=== PATIENT | female | born 1950 | race Caucasian/White ===

== ENCOUNTER 2020-02-26 09:30 | Outpatient (CLI) | payer MEDICARE, MEDICAID, SELFPAY ==
--- NOTE | 2020-02-26 09:45 | MM_ITS ---
WS: [id number] BILATERAL DIGITAL SCREENING MAMMOGRAPHY WITH CAD CLINICAL INFORMATION: SCREENING HISTORY: Screening mammogram. Pain under both breasts. COMPARISON: February 21, 2019 TECHNIQUE: Bilateral CC and MLO views. FINDINGS: The breasts are composed of heterogeneous fibroglandular density tissue, which can limit the detectio n of small underlying mass lesions. No suspicious mass, asymmetry, calcifications, or architectural d istortion. No evidence of malignancy. Stable intramammary lymph nodes bilaterally. A few stable punct ate calcifications. MM/[place] [id number] IMPRESSION: BI-RADS: 2-Benign FOLLOW UP: 1 Year Follow-up Recommend return to annual screening mammography.
== END 2020-02-26 09:31 | disposition home or self-care (01) ==
LOC: RADSHAW 09:39
PROVIDERS: PCP Nurse Practitioner Family; Visit Provider Nurse Practitioner Family
DX: Z12.31 Encounter for screening mammogram for malignant neoplasm of breast (principal)
CPT/HCPCS: 77067

== ENCOUNTER 2020-05-03 12:48 | Outpatient (CLI) | payer MEDICARE, MEDICAID, SELFPAY ==
--- NOTE | 2020-05-03 12:59 | CT_ITS ---
WS: [id number] CT of the lumbar spine, additional two-dimensional coronal and sagittal imaging was obtained. 05/03/20 Clinical Data: CHRONIC LUMBAR RADICULOPATHY Comparison: None. DLP: 1842.[address] scans at [facility] use at least one of these dose optimization techniques: automat ed exposure control; mA and/or kV adjustment per patient size (includes targeted exams where dose is matched to clinical indication); or iterative reconstruction. Findings: No compression fractures are seen. The disc heights are normal. There is minimal anterior o steoarthritic spurring at all the lumbar vertebral bodies. No subluxation is seen. T12-L1: No canal stenosis, disc bulge or foraminal narrowing is seen. L1-L2: No canal stenosis, disc bulge or foraminal narrowing is seen. L2-L3: There is a minimal posterior disc bulge causing mild canal stenosis but there is no foraminal stenosis. L3-L4: There is a minimal central disc bulge causing canal stenosis but no foraminal stenosis. L4-L5: There is a minimal central disc bulge causing canal stenosis and mild foraminal stenosis. L5-S1: There is a minimal central disc bulge causing mild canal stenosis but no foraminal stenosis. CT/CT lumbar spine wo con* [id number] Impression: Multilevel posterior disc bulging causing canal stenosis.
== END 2020-05-03 12:49 | disposition home or self-care (01) ==
LOC: RADSHAW 12:52
PROVIDERS: PCP Nurse Practitioner Family; Visit Provider Nurse Practitioner Family
DX: M54.16 Radiculopathy, lumbar region (principal); M51.26 Other intervertebral disc displacement, lumbar region; M48.061 Spinal stenosis, lumbar region without neurogenic claudication
CPT/HCPCS: 72131

== ENCOUNTER 2020-05-08 08:45 | Day surgery (SDC) | payer MEDICARE, MEDICAID, SELFPAY ==
[2020-05-06 13:21] VITALS: BMI 38.8
[2020-05-08 09:20] VITALS: BP 164/113; PULSE 86; RESP 20; TEMP 36.5; O2SAT 95
[2020-05-08] MEDS: sodium chloride 0.9% 1,000 ML 30 ML IV (09:36)
--- NOTE | 2020-05-08 09:38 | ANES.PREANE2 ---
Pre-Anesthetic Assessment Pre-Anesthetic Assessment: Height/Weight: Height 1.52 m Weight 90.265 kg Temp Pulse Resp BP Pulse Ox 97.7 F 86 20 H 164/113 95 05/08/20 09:20 05/08/20 09:20 05/08/20 09:20 05/08/20 09:20 05/08/20 09:20 Preop Diagnosis: Diarrhea Proposed Procedure: Operation Date: 05/08/20 09:45 Proposed Procedures p Colonoscopy 03544 R19.7(Not Applicable) - Corey Sigala MD Was Beta Rafaela taken within 24 hours: Yes Last intake: Intake Last Liquid Date 05/07/20 Last Liquid Time 19:00 Last Solid Date 05/06/20 Last Solid Time 17:00 Social: Social History: No alcohol and No tobacco Exam: Pre-Anes Outpt Exam: alert, oriented x 3, clear to auscultation bilaterally and regular rate & rhythm Airway: Submandibular: WNL Cervical ROM: WNL MP: 3 Dentition: False Pulmonary: Pulmonary: Sleep apnea CV/HEM: CV/HEM: HTN : : None reported Hepatic: Hepatic: None reported GI: GI: GERD Metabolic: Metabolic: None reported Musc/skel: Musc/skel: Lower Back Pain Neuropsych: Neuropsych: None reported Anesthetic Plan: ASA status: 3 Anesthesia: MAC Risk of > 500 ml blood loss (7ml/kg in children): No Meds/Allergies Current Medications: Current Medications Generic Name Dose Route Start Last Admin Trade Name Freq PRN Reason Stop Dose Admin Sodium Chloride 1,000 mls @ 30 ml s/hr 05/08/20 09:15 05/08/20 09:36 Sodium Chloride 0.9% IV 05/09/20 09:14 30 mls/hr .Q24H CARLOS Administration PFSH Anesthesia PFSH: Medical History Anxiety Diarrhea Hypertension Kidney disease Surgical History History of bilateral tubal ligation History of hemorrhoidectomy History of laparoscopic cholecystectomy Family History Denies family history of Anesthesia complication Bleeding disorder Social History Smoking and tobacco status: never smoked Second hand smoke exposure: No Alcohol intake: never Adopted: No Caregiver/support person: Yes Lives independently: No Household members: family Housing: House Marital status: Single Current occupational status: disabled Pets and animals: No History of recent travel: No Sexually active: No Current gender identity: Female Penelope/Evangelical: Adventist Special penelope needs: No Data Anesthesia Cardiac Studies: No Data to Display
--- NOTE | 2020-05-08 10:21 | W.PM.OPSUD ---
Surgery/Procedure H&P Update DATE OF PROCEDURE: May 08, 2020 DATE H&P PERFORMED: 04/10/20 H&P UPDATE INFORMATION: I have reviewed H&P completed within last 30 days, I have examined patient prior to procedure and No changes to prior documentation PREOP DIAGNOSIS: Diarrhea PRIMARY INDICATION FOR PROCEDURE: The same PLANNED PROCEDURE: Operation Date: 05/08/20 09:45 Proposed Procedures p Colonoscopy 02053 R19.7(Not Applicable) - Corey Sigala MD
[2020-05-08 10:40] VITALS: BP 134/81; PULSE 79; RESP 16; TEMP 36.9; O2SAT 94
--- NOTE | 2020-05-08 10:45 | ANE.PACU2 ---
Inpatient post-anesthesia follow up: Airway intact: Yes Vital signs: Temperature 98.4 F Pulse Rate 79 Respiratory Rate 16 Blood Pressure 134/81 Pulse Oximetry 94 Oxygen Delivery Me thod Nasal Cannula Oxygen Flow Rate 3 Fraction of Inspir ed Oxygen Hydration adequate: Yes Nausea and vomiting: No Pain level: 1
[2020-05-08 10:55] VITALS: BP 132/87; PULSE 83; RESP 16; O2SAT 95
== END 2020-05-08 11:12 | disposition home or self-care (01) ==
PROVIDERS: PCP Nurse Practitioner Family; Visit Provider Surgery
PROC: 0DJD8ZZ Inspection of Lower Intestinal Tract, Via Natural or Artificial Opening Endoscopic (ICD-10-PCS; CPT 45378; principal; 2020-05-08 09:45)
DX: D12.4 Benign neoplasm of descending colon (principal); D12.8 Benign neoplasm of rectum; K57.30 Diverticulosis of large intestine without perforation or abscess without bleeding; K52.9 Noninfective gastroenteritis and colitis, unspecified; I12.9 Hypertensive chronic kidney disease with stage 1 through stage 4 chronic kidney disease, or unspecified chronic kidney disease; N18.9 Chronic kidney disease, unspecified; G47.30 Sleep apnea, unspecified
CPT/HCPCS: 12345; 45385; 82274; 83630; 87493; 87506; 88305; J2704; J7030

== ENCOUNTER 2021-03-03 09:20 | Outpatient (CLI) | payer MEDICARE, MEDICAID, SELFPAY ==
--- NOTE | 2021-03-03 09:29 | MM_ITS ---
WS: [id number] BILATERAL SCREENING DIGITAL MAMMOGRAM WITH CAD HISTORY: SCREENING COMPARISON: 02/26/2020, 12/30/2015, 01/04/2017 and 02/21/2019 Bilateral CC and MLO views submitted. Computer aided detection analyzed. Breast composition: The breasts are heterogeneously dense, which may obscure small masses. No suspici ous masses, microcalcifications or architectural distortion. There are several asymmetries within eac h breast. The most concerning is on the RIGHT MLO projection above the nipple line and posterior. Angeline y similar dating back over multiple prior examinations to 2016 and therefore stable. There are additi onal benign scattered calcifications. MM/[place] [id number] IMPRESSION: BI-RADS: 2-Benign FOLLOW UP: 1 Year Follow-up
== END 2021-03-03 09:21 | disposition home or self-care (01) ==
LOC: RADSHAW 09:24
PROVIDERS: PCP Nurse Practitioner Family; Visit Provider Nurse Practitioner Family
DX: Z12.31 Encounter for screening mammogram for malignant neoplasm of breast (principal)
CPT/HCPCS: 77067

== ENCOUNTER 2021-06-27 19:30 | Emergency (ER) | payer MEDICARE, MEDICAID, SELFPAY ==
[2021-06-27 19:39] VITALS: BP 160/108; PULSE 96; RESP 18; TEMP 36.8; O2SAT 94; BMI 35.2
--- NOTE | 2021-06-27 19:51 | CTR_ITS ---
PROCEDURE INFORMATION: Exam: CT Thoracic Spine Without Contrast Exam date and time: 06/27/2021 7:51 PM Age: 70 years old Clinical indication: Injury or trauma; Fall; Blunt trauma (contusions or hematomas); Prior surgery; Surgery type: Gb; Patient HX: Patient fell on floor at home onto left side. C/O head/neck pain. Bruising to left orbit. C/O back pain. Unable to put arms above head. C collar in place. TECHNIQUE: Imaging protocol: Computed tomography images of the thoracic spine without contrast. Radiation optimization: All CT scans at this facility use at least one of these dose optimization techniques: automated exposure control; mA and/or kV adjustment per patient size (includes targeted exams where dose is matched to clinical indication); or iterative reconstruction. COMPARISON: CT cervical spin wo con* [id number] 06/27/2021 8:42 PM RADIATION DOSE METRICS: Total DLP (mGy-cm): 1791.66 FINDINGS: Vertebrae: No acute fracture. Normal alignment. Mild degenerative changes are noted. Discs/Spinal canal/Neural foramina: No significant disc protrusion. No severe spinal canal stenosis. No significant neural foraminal narrowing. Soft tissues: Unremarkable. Lungs: There is mild ground-glass opacity in the lung bases compatible with mild atelectasis, edema or pneumonitis. CT/CT thoracic spin wo con* [id number] IMPRESSION: 1. There is mild ground-glass opacity in the lung bases compatible with mild atelectasis, edema or pneumonitis. 2. No acute bony abnormality. Mild diffuse degenerative changes are noted. Radiation Dose CTDIVOL = (mGy): DLP = 1791.66 (mGy-cm)
--- NOTE | 2021-06-27 19:51 | CTR_ITS ---
PROCEDURE INFORMATION: Exam: CT Lumbar Spine Without Contrast Exam date and time: 06/27/2021 7:51 PM Age: 70 years old Clinical indication: Injury or trauma; Fall; Blunt trauma (contusions or hematomas) TECHNIQUE: Imaging protocol: Computed tomography images of the lumbar spine without contrast. Radiation optimization: All CT scans at this facility use at least one of these dose optimization techniques: automated exposure control; mA and/or kV adjustment per patient size (includes targeted exams where dose is matched to clinical indication); or iterative reconstruction. COMPARISON: CT lumbar spine wo con* [id number] 05/03/2020 1:03 PM RADIATION DOSE METRICS: Total DLP (mGy-cm): 1678.43 FINDINGS: Vertebrae: No acute fracture. Normal alignment. Discs/Spinal canal/Neural foramina: There is an unchanged disc bulge at L5-S1 with mild narrowing of the central canal and foramina but no critical stenosis. Soft tissues: Unremarkable. CT/CT lumbar spine wo con* [id number] IMPRESSION: No acute findings. Radiation Dose CTDIVOL = (mGy): DLP = 1678.43 (mGy-cm)
--- NOTE | 2021-06-27 19:51 | XRR_ITS ---
PROCEDURE INFORMATION: Exam: XR Left Femur Exam date and time: 06/27/2021 7:51 PM Age: 70 years old Clinical indication: Injury or trauma; Fall; Blunt trauma; Thigh or upper leg; Bilateral TECHNIQUE: Imaging protocol: XR Left femur. Views: 2 views. COMPARISON: CT abdomen pelvis w con* [id number] 02/10/2017 2:13 PM FINDINGS: Bones/joints: Unremarkable. No acute fracture. There is osteopenia. Soft tissues: Mild edema anterior to the proximal tibia. XR/XR femur LT min 2V* [id number] IMPRESSION: No acute findings. Radiation Dose CTDIVOL = (mGy): DLP = (mGy-cm)
--- NOTE | 2021-06-27 19:51 | CTR_ITS ---
PROCEDURE INFORMATION: Exam: CT Head Without Contrast Exam date and time: 06/27/2021 7:51 PM Age: 70 years old Clinical indication: Injury or trauma; Fall; Blunt trauma (contusions or hematomas); Patient HX: Patient fell on floor at home onto left side. C/O head/neck pain. Bruising to left orbit. C/O back pain. Unable to put arms above head. C collar in place. TECHNIQUE: Imaging protocol: Computed tomography of the head without contrast. Radiation optimization: All CT scans at this facility use at least one of these dose optimization techniques: automated exposure control; mA and/or kV adjustment per patient size (includes targeted exams where dose is matched to clinical indication); or iterative reconstruction. COMPARISON: CT head wo con* [id number] 06/26/2019 2:03 PM RADIATION DOSE METRICS: Total DLP (mGy-cm): 761.03 FINDINGS: Brain: There is mild cerebral atrophy. No hemorrhage. Unremarkable white matter. No mass effect. Cerebral ventricles: No ventriculomegaly. Paranasal sinuses: Visualized sinuses are unremarkable. No fluid levels. Mastoid air cells: Visualized mastoid air cells are well aerated. Bones/joints: Unremarkable. No acute fracture. Soft tissues: Left frontal scalp soft tissue hematoma. Diffuse left periorbital soft tissue swelling. CT/CT head wo con* [id number] IMPRESSION: Negative for acute intracranial injury. Radiation Dose CTDIVOL = (mGy): DLP = 761.03 (mGy-cm)
--- NOTE | 2021-06-27 19:51 | XRR_ITS ---
PROCEDURE INFORMATION: Exam: XR Right Tibia and Fibula Exam date and time: 06/27/2021 7:51 PM Age: 70 years old Clinical indication: Injury or trauma; Fall; Blunt trauma; Lower leg; Bilateral TECHNIQUE: Imaging protocol: XR Right tibia and fibula. Views: 2 views. COMPARISON: No relevant prior studies available. FINDINGS: Bones/joints: There is osteopenia. Moderate degenerative changes in the knee joint and ankle are noted. No acute fracture or dislocation. Soft tissues: Normal. XR/XR tibia fibula RT 2V [id number] IMPRESSION: No acute bony abnormality. Radiation Dose CTDIVOL = (mGy): DLP = (mGy-cm)
--- NOTE | 2021-06-27 19:51 | XRR_ITS ---
PROCEDURE INFORMATION: Exam: XR Right Femur Exam date and time: 06/27/2021 7:51 PM Age: 70 years old Clinical indication: Injury or trauma; Fall; Blunt trauma; Thigh or upper leg; Bilateral TECHNIQUE: Imaging protocol: XR Right femur. Views: 2 views. COMPARISON: CT abdomen pelvis w con* [id number] 02/10/2017 2:13 PM FINDINGS: Bones/joints: Unremarkable. No acute fracture. Soft tissues: Unremarkable. XR/XR femur RT min 2V* [id number] IMPRESSION: No acute findings. Radiation Dose CTDIVOL = (mGy): DLP = (mGy-cm)
--- NOTE | 2021-06-27 19:51 | CTR_ITS ---
PROCEDURE INFORMATION: Exam: CT Maxillofacial Without Contrast Exam date and time: 06/27/2021 7:51 PM Age: 70 years old Clinical indication: Injury or trauma; Fall; Blunt trauma (contusions or hematomas); Orbit/periorbital; Patient HX: Patient fell on floor at home onto left side. C/O head/neck pain. Bruising to left orbit. C/O back pain. Unable to put arms above head. C collar in place. TECHNIQUE: Imaging protocol: Computed tomography images of the face without contrast. Radiation optimization: All CT scans at this facility use at least one of these dose optimization techniques: automated exposure control; mA and/or kV adjustment per patient size (includes targeted exams where dose is matched to clinical indication); or iterative reconstruction. COMPARISON: CT head wo con* [id number] 06/27/2021 8:38 PM RADIATION DOSE METRICS: Total DLP (mGy-cm): 703.9 FINDINGS: Orbital cavity: Orbits are normal. Globes are unremarkable. Bones/joints: No acute fracture. Paranasal sinuses: Normal. No air-fluid levels. Soft tissues: Left periorbital soft tissue swelling. Focal left frontal scalp soft tissue hematoma. CT/CT facial bones wo con* [id number] IMPRESSION: Negative for acute facial bone fracture. Radiation Dose CTDIVOL = (mGy): DLP = 703.9 (mGy-cm)
--- NOTE | 2021-06-27 19:51 | XRR_ITS ---
PROCEDURE INFORMATION: Exam: XR Left Tibia and Fibula Exam date and time: 06/27/2021 7:51 PM Age: 70 years old Clinical indication: Injury or trauma; Fall; Blunt trauma; Lower leg; Bilateral TECHNIQUE: Imaging protocol: XR Left tibia and fibula. Views: 2 views. COMPARISON: No relevant prior studies available. FINDINGS: Bones/joints: Normal. No acute fracture or dislocation. Soft tissues: There is mild subcutaneous edema. XR/XR tibia fibula LT 2V [id number] IMPRESSION: No acute findings. Radiation Dose CTDIVOL = (mGy): DLP = (mGy-cm)
[2021-06-27] MEDS: ondansetron 2 mg/ML SDV 2 mL 4 MG IVP (20:04)
[2021-06-27] MEDS: morphine 4 mg/mL SDV 1 mL IVP (20:04)
--- NOTE | 2021-06-27 20:15 | CTR_ITS ---
PROCEDURE INFORMATION: Exam: CT Cervical Spine Without Contrast Exam date and time: 06/27/2021 8:15 PM Age: 70 years old Clinical indication: Injury or trauma; Fall; Blunt trauma; Patient HX: Patient fell on floor at home onto left side. C/O head/neck pain. Bruising to left orbit. C/O back pain. Unable to put arms above head. C collar in place. TECHNIQUE: Imaging protocol: Computed tomography images of the cervical spine without contrast. Radiation optimization: All CT scans at this facility use at least one of these dose optimization techniques: automated exposure control; mA and/or kV adjustment per patient size (includes targeted exams where dose is matched to clinical indication); or iterative reconstruction. COMPARISON: CT facial bones wo con* [id number] 06/27/2021 8:40 PM RADIATION DOSE METRICS: Total DLP (mGy-cm): 540.52 FINDINGS: Vertebrae: No acute fracture. Normal alignment. The cervical spine demonstrates moderate degenerative changes at multiple levels. C2-C3: No significant disc protrusion. No severe spinal canal stenosis. No significant neural foraminal narrowing. C3-C4: No significant disc protrusion. No severe spinal canal stenosis. No significant neural foraminal narrowing. C4-C5: No significant disc protrusion. No severe spinal canal stenosis. No significant neural foraminal narrowing. C5-C6: No significant disc protrusion. No severe spinal canal stenosis. No significant neural foraminal narrowing. C6-C7: No significant disc protrusion. No severe spinal canal stenosis. No significant neural foraminal narrowing. C7-T1: No significant disc protrusion. No severe spinal canal stenosis. No significant neural foraminal narrowing. Soft tissues: Unremarkable. Lungs: Lung apices are normal. CT/CT cervical spin wo con* [id number] IMPRESSION: No acute findings. Radiation Dose CTDIVOL = (mGy): DLP = 540.52 (mGy-cm)
--- NOTE | 2021-06-27 20:15 | XRR_ITS ---
PROCEDURE INFORMATION: Exam: XR Left Elbow Exam date and time: 06/27/2021 8:15 PM Age: 70 years old Clinical indication: Injury or trauma; Fall; Blunt trauma (contusions or hematomas); Elbow; Left TECHNIQUE: Imaging protocol: XR Left elbow. Views: 3 or more views. COMPARISON: No relevant prior studies available. FINDINGS: Bones/joints: Normal. No acute fracture or dislocation. Mild degenerative changes are noted. There is an olecranon enthesophyte. A calcification adjacent to the mediolateral epicondyles is compatible probable chronic tendinopathy. Soft tissues: Normal. No elbow joint effusion. XR/XR elbow LT min 3V* [id number] IMPRESSION: No acute findings. Radiation Dose CTDIVOL = (mGy): DLP = (mGy-cm)
[2021-06-27] MEDS: fentaNYL 50 mcg/mL INJ 2mL IVP (20:19)
[2021-06-27 21:28] VITALS: BP 147/94; PULSE 95; RESP 16; O2SAT 93
--- NOTE | 2021-06-27 21:35 | PC.NURSE ---
c collar removed per physicans order. ct c spine negative for acute bony deformities.
--- NOTE | 2021-06-27 21:36 | ED_ITS ---
HPI - Fall General: Chief Complaint: Fall Stated Complaint: fall History of Present Illness: HPI Narrative: 70-year-old female who went to swat at a spider, and fell. She fell hitting the wall on the way to the ground in her home. She fell on her left side and complains of left-sided head and face pain, neck pain, left elbow pain, and bilateral leg pain. complaint: fall Fall from: standing Fall witnessed: no Place fall occurred: home Loss of consciousness: None Prolonged down time: no Symptoms prior to fall: none Context: tripped/slipped Location of injury: head and neck Location of injury - extremities: Left: elbow and Bilateral: thigh, knee and lower leg Associated symptoms-after fall: Reports difficulty walking, headache(s) and neck pain; Denies abdominal pain, chest pain, confusion, numbness or short of breath Review of Systems Const: Denies: fever(s) or chills Card: Denies: chest pain GI: Denies: abdominal pain Musc: Reports: neck pain Neuro: Reports: headache(s) and difficulty walking; Denies: confusion PFSH ED PFSH: Medical History (Updated 06/27/21 @ 21:50 by Yury Caldera DO) Anxiety Diarrhea Hypertension Kidney disease Surgical History History of bilateral tubal ligation History of hemorrhoidectomy History of laparoscopic cholecystectomy Family History Denies family history of Anesthesia complication Bleeding disorder Social History Smoking and tobacco status: never smoked Second hand smoke exposure: No Alcohol intake: never Adopted: No Caregiver/support person: Yes Lives independently: No Household members: family Housing: House Marital status: Single Current occupational status: disabled Pets and animals: No History of recent travel: No Sexually active: No Current gender identity: Female Penelope/Muslim: Denominational Special penelope needs: No Physical Exam Const: GENERAL APPEARANCE: cooperative, in distress (In pain), anxious and frail appearing NUTRITIONAL APPEARANCE: obese ORIENTATION/CONSCIOUSNESS: Yes awake, Yes oriented to person and Yes oriented to place HENMT: COMMON NORMALS: external ears normal and Normal external nose present FACE & SINUS: ecchymosis on the left periorbital and edema NOSE: Normal external nose present and Normal nares present EXTERNAL EAR: Yes external ears normal MOUTH: Normal oral and palatal mucosa present Eye: GENERAL EYE: appearance normal, both eyes and all related structures Neck/C-Spine: GENERAL: Yes trachea midline CERVICAL SPINE: Yes Cervical spine tenderness (Left side lower) Chest: COMMONS NORMALS: normal inspection of the chest CHEST: No tenderness Extremity: NARRATIVE EXTREMITY EXAM: Exam of the bilateral lower extremities reveals some diffuse edema. There is diffuse tenderness along the thigh and leg. No distinct hip tenderness. Pelvis is nontender, and stable on exam logroll test is negative for hip pain bilaterally Neuro: SENSORIUM/ORIENTATION: Yes oriented to person and Yes oriented to place Course Vital Signs: Vital signs: Vital Signs Temperature 98.2 F 06/27/21 21:59 Pulse Rate 91 06/27/21 21:59 Respiratory Rate 18 06/27/21 21:59 Blood Pressure 132/97 06/27/21 21:59 Pulse Oximetry 93 06/27/21 21:59 MDM - Fall MDM Narrative: Medical decision making narrative: 70-year-old female with multiple contusions, mainly to the left face, left elbow. No fractures of theLower extremities bilaterally. No fracture of the elbow. No facial or spine fractures. Head CT is negative. Incidentally, she has some mild groundglass appearance of the bases of her lungs on imaging of her spine. Afebrile, with adequate saturations here in no respiratory symptoms. she will be allowed home. Discharge Plan Discharge Patient Disposition: Home Clinical Impression: Facial contusion Qualifiers: Encounter type: initial encounter Qualified Code(s): S00.83XA - Contusion of other part of head, initial encounter Contusion of elbow, left Qualifiers: Encounter type: initial encounter Qualified Code(s): S50.02XA - Contusion of left elbow, initial encounter Condition: Stable Prescriptions: New hydrocodone-acetaminophen 5-325 mg tablet 1 tab PO Q8H PRN (Reason: pain) Qty: 7 RF: 0 No Action lisinopril-hydrochlorothiazide 10-12.5 mg tablet 1 tab PO DAILY Qty: 30 RF: 0 atorvastatin 20 mg tablet 20 mg PO DAILY Qty: 30 RF: 0 aripiprazole [Abilify] 2 mg tablet 2 mg PO DAILY Qty: 30 RF: 1 duloxetine 20 mg capsule,delayed release(/EC) 20 mg PO DAILY Qty: 30 RF: 0 meloxicam 15 mg tablet 15 mg PO DAILY RF: 0 Hold Instructions: Resume on 05/13/20. buspirone 15 mg tablet 15 mg PO BID RF: 0 cetirizine 10 mg Tablet 10 mg PO DAILY RF: 0 propranolol 40 mg Tablet 40 mg PO DAILY RF: 0 omeprazole 20 mg Capsule,Delayed Release(Dr/Ec) 20 mg PO DAILY RF: 0 Discharge Orders: Discharge ED (Routine); Ordered 06/27/21 Ordered By: Yury Caldera Referrals: Carol Lugo APN [Primary Care Provider] - 1-3 days Discharge Diet: Advance as tolerated Discharge Activity: Increase activity as tolerated Patient Instructions: Contusion in Adults (ED), Facial Contusion (ED), Opioid Safety Activity Restrictions/Additional Instructions: Only use pain medication for severe pain. Ice will help with pain and swelling. You should have someone stay with you for at least 24 hours to prevent reinjury, and to ensure you do not worsen acutely. Return for worsening symptoms, including mental status changes, lethargy, weakness, any other concerns. Coding Level of Care Code ED Survey Research Analyst for [facility] F[facility] Exam Detailed
[2021-06-27 21:52] VITALS: BP 132/97; PULSE 91; RESP 18; O2SAT 93
[2021-06-27 21:59] VITALS: BP 132/97; PULSE 91; RESP 18; TEMP 36.8; O2SAT 93
== END 2021-06-27 22:00 | disposition home or self-care (01) ==
PROVIDERS: Emergency Provider Emergency Medicine; PCP Nurse Practitioner Family
DX: S00.83XA Contusion of other part of head, initial encounter (principal); S50.02XA Contusion of left elbow, initial encounter; W17.89XA Other fall from one level to another, initial encounter; I10 Essential (primary) hypertension
CPT/HCPCS: 70450; 70486; 72125; 72128; 72131; 73080; 73552; 73590; 96374; 96375; 99284; J2270; J2405; J3010

== ENCOUNTER 2021-10-25 21:45 | Emergency (ER) | payer MEDICARE, MEDICAID, SELFPAY ==
--- NOTE | 2021-10-25 22:11 | XRR_ITS ---
PROCEDURE INFORMATION: Exam: XR Chest Exam date and time: 10/25/2021 10:11 PM Age: 70 years old Clinical indication: Pain; Chest pressure; Additional info: Chest pain TECHNIQUE: Imaging protocol: XR of the chest. Views: 1 view. COMPARISON: CR Chest 1 [place] [id number] 07/26/2017 1:09 AM FINDINGS: Lungs: Unremarkable. No consolidation. Pleural spaces: Unremarkable. No pleural effusion. No pneumothorax. Heart/Mediastinum: Unremarkable. No cardiomegaly. Bones/joints: Unremarkable. XR/XR chest 1V portable [id number] IMPRESSION: No acute findings.
--- NOTE | 2021-10-25 22:11 | ECG_ITS ---
[facility] Test Date: 2021-10-25 Pat Name: Yarelis Beal Department: Room: Gender: Female Nurse Infection Control: : 1950 Requested By: Trey Cantor Order Number: [id number] Jose J MD: Dia Tony M.D. Measurements Intervals Martinez Rate: 95 P: 43 NJ: 156 QRS: 14 QRSD: 97 T: 18 QT: 314 QTc: 396 Interpretive Statements SINUS RHYTHM Compared to ECG 07/26/2017 00:16:41 No significant changes Electronically Signed On 10-26-2021 16:59:28 BLOOD BANK CALENDAR CONTROL CLERK by Dia Tony M.D. [email or web address]
[2021-10-25 22:14] VITALS: BP 136/79; PULSE 99; RESP 18; TEMP 37.2; O2SAT 96; BMI 33.7
--- NOTE | 2021-10-25 22:52 | W.ED.CHESTPA ---
HPI - Chest Pain General: Chief Complaint: Chest Pain Stated Complaint: CHEST PAIN Time Seen by Provider: 10/25/21 22:14 Source: patient History of Present Illness: 70-year-old female says she has had chest pain today. Chest discomfort is located on her left chest, radiates to her left shoulder. She has been short of breath today. She has a productive cough. No fever. She also complains of right sided belly pain. No diarrhea or vomiting. MD complaint: chest pain Onset (ago): hour(s) Timing of current episode: constant Onset: during rest Pain location: left chest Pain radiation: left shoulder Severity: moderate Quality: tightness and aching Relieving factors: nothing Exacerbating factors: nothing Associated symptoms: Deny abdominal pain, diaphoresis, dyspnea or palpitations Review of Systems Const: Denies: diaphoresis ENMT: Denies: throat pain Card: Reports: chest pain; Denies: palpitations Resp: Denies: dyspnea GI: Denies: abdominal pain Musc: Denies: neck pain Skin/Breast: Denies: rash Psych: Denies: anxiety PFSH ED PFSH: Medical History (Updated 10/26/21 @ 01:10 by Yury Caldera DO) Anxiety Diarrhea Hypertension Kidney disease Surgical History History of bilateral tubal ligation History of hemorrhoidectomy History of laparoscopic cholecystectomy Family History Denies family history of Anesthesia complication Bleeding disorder Social History Smoking and tobacco status: never smoked Second hand smoke exposure: No Alcohol intake: never Adopted: No Caregiver/support person: Yes Lives independently: No Household members: family Housing: House Marital status: Single Current occupational status: disabled Pets and animals: No History of recent travel: No Sexually active: No Current gender identity: Female Penelope/Jew: Restoration Special penelope needs: No Physical Exam Const: GENERAL APPEARANCE: cooperative; not ill appearing HENMT: FACE & SINUS: normal facial exam Eye: COMMON NORMALS: Equal, round and reactive pupils present and EOMs intact bilaterally PUPIL: Yes Equal, round and reactive pupils present Chest: COMMONS NORMALS: normal inspection of the chest Resp: COMMON NORMALS: normal respiratory effort, No use of accessory muscles and clear to auscultation bilaterally AUSCULTATION: clear to auscultation bilaterally Cardio: COMMON NORMALS: regular rate and regular rhythm RATE: regular rate RHYTHM: regular rhythm GI: COMMON NORMALS: Normal to inspection, nondistended, normoactive bowel sounds present and Soft to palpation PALPATION: Yes Soft to palpation and Yes Tenderness to palpation present (GI) (generalized) Neuro: STEFFANIE COMA SCALE: document GCS findings Steffanie coma scale eye opening: Spontaneous [place] coma scale verbal response: Orientated [place] coma scale motor response: Obey commands Steffanie coma scale total score: 15 Course Vital Signs: Vital signs: Vital Signs Temperature 98.9 F 10/25/21 22:14 Pulse Rate 94 10/26/21 01:27 Respiratory Rate 16 10/26/21 01:27 Blood Pressure 118/81 10/26/21 01:27 Pulse Oximetry 95 10/26/21 01:27 MDM - Chest Pain Medical Decision Making 70-year-old female reports chest discomfort. Her chest pain is gone now. She is asking to go home. 1st EKG shows sinus tachycardia with a normal axis. There are no acute ST wave changes. Her 1st troponin is 11. Creatinine is 1. CBC is normal. Chest x-ray is negative. D-dimer is negative. She will be allowed home, as she is requesting home, and family is requesting her discharge. She was informed that waiting on her 2nd troponin to result negative would be a safer move given her chest discomfort earlier. She accepts the risks. Lab Data : 10/25/21 22:29 10/25/21 22:29 Radiology Impressions Chest X-Ray 10/25/21 22:11 IMPRESSION: No acute findings. Laboratory Results WBC 9.6 10^3/uL (4.0-10.0) 10/25/21 22: RBC 4.51 10^6/uL (4.1-5.3) 10/25/21: Hgb 13.4 g/dL (11.5-15.3) 10/25/21: Hct 42.5 % (37.0-47.0) 10/25/21 22: MCV 94.2 fl (81-99) 10/25/21: MCH 29.7 pg (28.0-34.0) 10/25/21: MCHC 31.5 g/dL (30.0-36.0) 10/25/21: RDW 13.1 % (12.1-15.1) 10/25/21 Plt Count 252 10^3/cmm (130-400) 10/25/21: MPV 9.8 fL (7.4-10.4) 10/25/21: Neut % (Auto) 59.9 % 10/25/21: Lymph % (Auto) 28.6 % 10/25/21 Baca % (Auto) 8.4 % 10/25/21 Eos % (Auto) 2.4 % 10/25/21 Baso % (Auto) 0.5 % 10/25/21 Neut # (Auto) 5.74 10^3/uL (1.8-7.7) 10/25/21 Lymph # (Auto) 2.7 10^3/uL (0.8-4.8) 10/25/21 [place]aca # (Auto) 0.8 10^3/uL (0.2-0.9) 10/25/21 Eos # (Auto) 0.2 10^3/uL (0.0-0.8) 10/25/21 Baso # (Auto) 0.1 10^3/uL (0.0-0.1) 10/25/21 Nucleated RBC % (auto) 0 % 10/25/21 Nucleated RBCs # 0.0 /100WBC 10/25/21: PT 13.80 SECONDS (12.1-14.9) 10/25/21: INR 1.03 (0.8-1.2) 10/25/21 APTT 25.1 SECONDS (23.9-36.7) 10/25/21 D-Dimer 0.34 ug/mIFEU (0-0.59) 10/25/21: Sodium 140 mmol/L (136-145) 10/25/21 Potassium 4.7 mmol/L (3.5-5.1) 10/25/21 Chloride 104 mmol/L (98-107) 10/25/21 22: Carbon Dioxide 22 mmol/L (22-29) 10/25/21: Anion Gap 18.7 (5-19) 10/25/21: BUN 14 mg/dL (8-23) 10/25/21: Creatinine 1.0 mg/dL (0.5-0.9) H 10/25/21: GFR Calculation Not Reportable 10/25/21: Glucose 91 mg/dL (65-115) 10/25/21: Calculated Osmolality 290 mOsm/kg (285-295) 10/25/21: Calcium 9.6 mg/dL (8.5-10.5) 10/25/21 Total Bilirubin 0.2 mg/dL (0.15-1.2) 10/25/21: AST 17 U/L (0-32) 10/25/21: ALT 8 U/L (0-33) 10/25/21: Alkaline Phosphatase 120 IU/L (35-105) H 10/25/21: Troponin T Baseline 11 ng/L (0-10) H 10/25/21: Troponin T 120 Minute 10.45 ng/L (0-10) H 10/26/21 00:55 Delta Troponin T -0.55 ABS# (0-10) L 10/26/21 00:55 NT-Pro-B Natriuret Pep 70 pg/mL (0-125) 10/25/21: Total Protein 6.6 g/dL (6.6-8.7) 10/25/21: Albumin 4.2 g/dL (3.5-5.2) 10/25/21: Globulin 2.4 g/dL (1.3-4.6) 10/25/21: Lipase 20 U/L (13-60) 10/25/21: SARS-CoV-2 Ag (Rapid) Negative (Negative) 10/25/21 22:51 Discharge Plan Discharge Patient Disposition: Home Clinical Impression: Chest pain Condition: Stable Prescriptions: No Action lisinopril-hydrochlorothiazide 10-12.5 mg tablet 1 tab PO DAILY Qty: 30 0RF atorvastatin 20 mg tablet 20 mg PO DAILY Qty: 30 0RF aripiprazole [Abilify] 2 mg tablet 2 mg PO DAILY Qty: 30 1RF Rx Instructions: NEEDS LAB AND VISIT duloxetine 20 mg capsule,delayed release(DR/EC) 20 mg PO DAILY Qty: 30 0RF Rx Instructions: MUST make an appt with Dr Ashraf for further refills. meloxicam 15 mg tablet 15 mg PO DAILY 0RF Hold Instructions: Resume on 05/13/20. buspirone 15 mg tablet 15 mg PO BID 0RF cetirizine 10 mg Tablet 10 mg PO DAILY 0RF propranolol 40 mg Tablet 40 mg PO DAILY 0RF omeprazole 20 mg Capsule,Delayed Release(Dr/Ec) 20 mg PO DAILY 0RF hydrocodone-acetaminophen 5-325 mg tablet 1 tab PO Q8H PRN (Reason: pain) Qty: 7 0RF Discharge Orders: Discharge ED (Routine); Ordered 10/26/21 Ordered By: Yury Caldera Referrals: Carol Lugo APN [Primary Care Provider] - 1-3 days Patient Instructions: Chest Pain (ED) Activity Restrictions/Additional Instructions: Return for return of chest pain, worsening shortness of breath, fever, cough, mental status changes, any other concerning symptoms. See your doctor next week. Coding Level of Care Code ED Staff Educator for Howard Fwd Exam Comprehensive
[2021-10-25 22:55] VITALS: BP 98/74; PULSE 100; RESP 18; O2SAT 95
[2021-10-25 23:05] LABS: Basophils # 0.1 10^3/uL (0.0-0.1); Basophils % 0.5 %; Eosinophils # 0.2 10^3/uL (0.0-0.8); Eosinophils % 2.4 %; Hematocrit 42.5 % (37.0-47.0); Hemoglobin 13.4 g/dL (11.5-15.3); Lymphocytes # 2.7 10^3/uL (0.8-4.8); Lymphocytes % 28.6 %; Mean Corpuscular HGB Conc 31.5 g/dL (30.0-36.0); Mean Corpuscular Hemoglobin 29.7 pg (28.0-34.0); Mean Corpuscular Volume 94.2 fl (81-99); Mean Platelet Volume 9.8 fL (7.4-10.4); Monocytes # 0.8 10^3/uL (0.2-0.9); Monocytes % 8.4 %; Neutrophils # 5.74 10^3/uL (1.8-7.7); Neutrophils % 59.9 %; Nucleated Red Blood Cells % 0 %; Platelet Count 252 10^3/cmm (130-400); Red Blood Count 4.51 10^6/uL (4.1-5.3); Red Cell Distribution Width 13.1 % (12.1-15.1); White Blood Count 9.6 10^3/uL (4.0-10.0)
[2021-10-25 23:12] LABS: INR 1.03 (0.8-1.2)
[2021-10-25 23:13] LABS: Partial Thromboplastin Time 25.1 SECONDS (23.9-36.7)
[2021-10-25 23:15] LABS: D Dimer 0.34 ug/mIFEU (0-0.59)
[2021-10-25 23:25] LABS: SARS Covid-2 Antigen Negative (Negative)
[2021-10-25 23:29] LABS: Troponin(5th) Baseline 11 ng/L (0-10)
[2021-10-25 23:42] LABS: Alanine Aminotransferase 8 U/L (0-33); Albumin Level 4.2 g/dL (3.5-5.2); Alkaline Phosphatase 120 IU/L (35-105); Aspartate Amino Transferase 17 U/L (0-32); Blood Urea Nitrogen 14 mg/dL (8-23); Calcium 9.6 mg/dL (8.5-10.5); Carbon Dioxide 22 mmol/L (22-29); Chloride 104 mmol/L (98-107); Globulin 2.4 g/dL (1.3-4.6); Glucose 91 mg/dL (65-115); Lipase 20 U/L (13-60); NT Pro B Type Natriuretic Pept 70 pg/mL (0-125); Osmolality Calculated 290 mOsm/kg (285-295); Sodium 140 mmol/L (136-145); Total Bilirubin 0.2 mg/dL (0.15-1.2); Total Protein 6.6 g/dL (6.6-8.7)
[2021-10-25 23:48] LABS: Anion Gap 18.7 (5-19); Potassium 4.7 mmol/L (3.5-5.1)
--- NOTE | 2021-10-26 00:11 | ECG_ITS ---
[facility] Test Date: 2021-10-26 Pat Name: Yarelis Beal Department: Room: Gender: Female Section Laborer: : 1950 Requested By: Trey Cantor Order Number: [id number] Jose J MD: Dia Tony M.D. Measurements Intervals [place] Rate: 100 P: 38 [place]: 170 QRS: 10 QRSD: 74 T: 10 QT: 318 QTc: 410 Interpretive Statements SINUS TACHYCARDIA ABNORMAL RHYTHM ECG Compared to ECG 10/25/2021 22:17:19 Sinus rhythm no longer present Electronically Signed On 10-26-2021 17:04:32 INSTRUCTIONAL SUPPORT SERVICES DIRECTOR by Dia Tony M.D. [id number]
[2021-10-26 00:22] VITALS: BP 112/69; PULSE 93; RESP 16; O2SAT 93
[2021-10-26 01:27] VITALS: BP 118/81; PULSE 94; RESP 16; O2SAT 95
[2021-10-26 01:29] LABS: Troponin 5 2HR 10.45 ng/L (0-10)
[2021-10-26 01:38] LABS: Troponin 5 2HR Delta -0.55 ABS# (0-10)
== END 2021-10-26 01:30 | disposition home or self-care (01) ==
PROVIDERS: Nurse Practitioner Family; Emergency Provider Emergency Medicine; PCP Nurse Practitioner Family
DX: R07.9 Chest pain, unspecified (principal); I10 Essential (primary) hypertension; Z20.822 Contact with and (suspected) exposure to COVID-19
CPT/HCPCS: 71045; 80053; 83690; 83880; 84484; 85025; 85378; 85610; 85730; 87426; 93005; 99284

== ENCOUNTER 2022-03-04 08:55 | Outpatient (CLI) | payer MEDICARE, MEDICAID, SELFPAY ==
--- NOTE | 2022-03-04 09:02 | MM_ITS ---
WS: [id number] BILATERAL SCREENING DIGITAL BREAST TOMOSYNTHESIS MAMMOGRAM WITH CAD HISTORY: SCREEN COMPARISON: 03/03/2021, 02/26/2020, 12/30/2015 and 01/04/2017 Bilateral CC and MLO views with tomosynthesis and synthetic mammography submitted. Computer aided det ection analyzed. Breast composition: The breasts are heterogeneously dense, which may obscure small masses. No suspici ous masses, microcalcifications or architectural distortion. Asymmetries and calcifications are stabl e. Numerous asymmetries particularly within the RIGHT breast have been present since 2016. MM/[place] [id number] IMPRESSION: BI-RADS: 2-Benign FOLLOW UP: 1 Year Follow-up
== END 2022-03-04 08:56 | disposition home or self-care (01) ==
LOC: RADSHAW 08:57
PROVIDERS: PCP Nurse Practitioner Family; Visit Provider Nurse Practitioner Family
DX: Z12.31 Encounter for screening mammogram for malignant neoplasm of breast (principal)
CPT/HCPCS: 77063; 77067

== ENCOUNTER 2022-05-31 11:54 | Emergency (ER) | payer MEDICARE, MEDICAID, SELFPAY ==
[2022-05-31 11:59] VITALS: BP 154/90; PULSE 88; RESP 18; TEMP 37.1; O2SAT 95; BMI 35.9
--- NOTE | 2022-05-31 12:00 | XRR_ITS ---
PROCEDURE INFORMATION: Exam: XR Left Ankle Exam date and time: 05/31/2022 12:24 PM Age: 71 years old Clinical indication: Injury or trauma; Swelling (edema); Ankle; Left; Injury date: 05/31/22; Injury details: Fall down hill today, swelling in toes; Additional info: Pain TECHNIQUE: Imaging protocol: Radiologic exam of the Left ankle. Views: 3 or more views. COMPARISON: CR XR tibia fibula LT 2V [id number] 06/27/2021 8:10 PM FINDINGS: Bones/joints: Distal fibular metaphyseal oblique minimally displaced fracture. 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 Distal Achilles tendon minimal degenerative calcification. Soft tissues: Soft tissue swelling about the ankle. XR/XR ankle LT min 3V* [id number] IMPRESSION: 1. Distal fibular metaphyseal oblique minimally displaced fracture. 2. 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 3. Soft tissue swelling about the ankle. 4. Distal Achilles tendon minimal degenerative calcification.
--- NOTE | 2022-05-31 12:05 | ED_ITS ---
HPI - Extremity Problem General: Chief complaint: Extremity Injury, Lower Stated complaint: L ANKLE PAIN Time Seen by Provider: 05/31/22 12:05 Source: patient Mode of arrival: EMS Limitations: no limitations History of Present Illness: 71 yr old female presents to the ER today for L ankle pain after a fall this am. Pt reports she was taking her trash out and tripped over her slipper. Pt reports she fell to the ground and felt a pop in her L ankle. Pt reports shes unable to bear weight due to the pain and called EMS. Pt reports she had immediate swelling and is unable to move the ankle without pain. Pt denies any prior injury to this ankle. Review of Systems General: Reports: 10 or more systems reviewed and unremarkable except in HPI and below PFSH ED PFSH: Medical History Anxiety Diarrhea Hypertension Kidney disease Surgical History History of bilateral tubal ligation History of hemorrhoidectomy History of laparoscopic cholecystectomy Family History Denies family history of Anesthesia complication Bleeding disorder Social History Smoking and tobacco status: never smoked Second hand smoke exposure: No Alcohol intake: never Adopted: No Caregiver/support person: Yes Lives independently: No Household members: family Housing: House Marital status: Single Current occupational status: disabled Pets and animals: No History of recent travel: No Sexually active: No Current gender identity: Female Peneloep/Scientology: Gnosticist Special penelope needs: No Physical Exam Const: COMMON NORMALS: average body habitus, patient oriented x3, no limitations, healthy appearing, alert and well nourished HENMT: COMMON NORMALS: normocephalic, atraumatic, external ears normal and Normal external nose present HEAD & SCALP: normocephalic and atraumatic NOSE: Normal external nose present EXTERNAL EAR: Yes external ears normal Resp: COMMON NORMALS: normal respiratory effort EFFORT & INSPECTION: Yes able to speak in complete sentences Cardio: COMMON NORMALS: regular rate and regular rhythm RATE: regular rate RHYTHM: regular rhythm Extremity: NARRATIVE EXTREMITY EXAM: Patient has moderate swelling over the left distal fibula/lateral malleolus. Tenderness to palpation over this area. No obvious bruising noted. Patient unable to bear weight due to pain. Neuro: COMMON NORMALS: patient oriented x3 SENSORIUM/ORIENTATION: Yes alert Psych: COMMON NORMALS: mental status grossly normal, Normal thought process present and cooperative THOUGHT PROCESS: Normal thought process present Skin: COMMON NORMALS: no rashes or lesions noted GENERAL SKIN EXAM: no rashes or lesions noted Course ED course: 71-year-old female presents to the ER today for left ankle pain after tripping over her slipper and falling while taking out the trash this morning at home. Patient was brought. She reports swelling and pain with any movement of the ankle. Patient reports being unable to bear weight due to pain. Patient denies any prior injury to this ankle. We will go ahead and get an x- ray at this time. Vital Signs: Vital signs: Vital Signs Temperature 98.7 F 05/31/22 11:59 Pulse Rate 88 05/31/22 11:59 Respiratory Rate 18 05/31/22 11:59 Blood Pressure 154/90 05/31/22 11:59 Pulse Oximetry 95 05/31/22 11:59 Oxygen Delivery Me thod 05/31/22 11:59 MDM - Extremity (Nontraumatic) Medical Decision Making 71-year-old female presents to the ER today for left ankle pain after tripping over her slipper and falling while taking out the trash this morning at home. Patient was brought. She reports swelling and pain with any movement of the ankle. Patient reports being unable to bear weight due to pain. Patient denies any prior injury to this ankle. X-ray done in the ER indicates a distal fibula minimally displaced oblique fracture of the left fibula. We will place patient in a splint at this time as I do not think she will do well in a boot. We will refer patient to orthopedics to follow-up. Recommended rest, ice, elevation. Do not get splint wet. Patient can follow-up with her PCP this week. Patient will be given hydrocodone for pain. Return to the ER with any new or worsening symptoms. Patient verbalized understanding and was in agreement with the treatment plan. Lab Data Radiology Impressions Ankle X-Ray 05/31/22 12:00 IMPRESSION: 1. Distal fibular metaphyseal oblique minimally displaced fracture. 2. 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 3. Soft tissue swelling about the ankle. 4. Distal Achilles tendon minimal degenerative calcification. Critical Care Time Critical Care Time: Critical Care Time: No Discharge Plan Discharge Patient Disposition: Home Clinical Impression: Closed left fibular fracture Qualifiers: Encounter type: initial encounter Fibula location: shaft Fracture morphology: oblique Fracture alignment: displaced Qualified Code(s): S82.432A - Displaced oblique fracture of shaft of left fibula, initial encounter for closed fracture Condition: Stable Prescriptions: New hydrocodone-acetaminophen 5-325 mg tablet 1 tab PO Q8H PRN (Reason: pain) Qty: 12 0RF No Action lisinopril-hydrochlorothiazide 10-12.5 mg tablet 1 tab PO DAILY Qty: 30 0RF atorvastatin 20 mg tablet 20 mg PO DAILY Qty: 30 0RF aripiprazole [Abilify] 2 mg tablet 2 mg PO DAILY Qty: 30 1RF Rx Instructions: NEEDS LAB AND VISIT duloxetine 20 mg capsule,delayed release(DR/EC) 20 mg PO DAILY Qty: 30 0RF Rx Instructions: MUST make an appt with Dr Ashraf for further refills. meloxicam 15 mg tablet 15 mg PO DAILY Hold Instructions: Resume on 05/13/20. buspirone 15 mg tablet 15 mg PO BID cetirizine 10 mg Tablet 10 mg PO DAILY propranolol 40 mg Tablet 40 mg PO DAILY omeprazole 20 mg Capsule,Delayed Release(Dr/Ec) 20 mg PO DAILY hydrocodone-acetaminophen 5-325 mg tablet 1 tab PO Q8H PRN (Reason: pain) Qty: 7 0RF Discharge Orders: Discharge ED (Routine); Ordered 05/31/22 Ordered By: Idania Aguiar Referrals: Carol Lugo APN [Primary Care Provider] - Discharge Diet: Usual diet Discharge Activity: Limit activity as instructed Patient Instructions: Opioid Safety Activity Restrictions/Additional Instructions: Keep splint clean and dry. Elevate leg to reduce swelling. Take hydrocodone as prescribed. Apply ice to reduce swelling. Follow-up with Ortho this week. Contact PCP and follow-up this week. Return to the ER with any new or worsening symptoms. Coding Level of Care Code ED Bank Sales And Service Manager for Howard Dorantes
--- NOTE | 2022-05-31 13:22 | PC.NURSE ---
Applied short leg splint to left leg. Foot wrapped with webroll to protect skin. 5 splinting material in posterior fashion and molded with foot in a neutral position. Secured with 3 and 5 toni bandage. Patient tolerated well and patient to sit with foot elevated until discharge.
== END 2022-05-31 13:57 | disposition home or self-care (01) ==
PROVIDERS: Emergency Provider Physician Assistant; PCP Nurse Practitioner Family
DX: S82.432A Displaced oblique fracture of shaft of left fibula, initial encounter for closed fracture (principal); W01.0XXA Fall on same level from slipping, tripping and stumbling without subsequent striking against object, initial encounter
CPT/HCPCS: 29515; 73610; 99283

== ENCOUNTER 2022-06-01 16:37 | Outpatient (CLI) | payer MEDICARE, MEDICAID, SELFPAY | END 2022-06-01 16:38 | disposition home or self-care (01) | LOC: SPT 16:37 | PROVIDERS: PCP Nurse Practitioner Family; Visit Provider Podiatrist Foot & Ankle Surgery | DX: S82.402A Unspecified fracture of shaft of left fibula, initial encounter for closed fracture; W01.0XXA Fall on same level from slipping, tripping and stumbling without subsequent striking against object, initial encounter | CPT/HCPCS: 97760; 99204; 99205; L4361 ==

== ENCOUNTER 2022-06-05 09:45 | Day surgery (SDC) | payer MEDICARE, MEDICAID, SELFPAY ==
[2022-06-04 11:35] VITALS: BMI 35.9
[2022-06-05] VITALS (13 sets, daily range): BP systolic 98–146; BP diastolic 68–101; PULSE 72–99; RESP 16–20; TEMP 36.6–36.8; O2SAT 90–99
--- NOTE | 2022-06-05 | SCC_ITS ---
Procedure done: Open reduction internal fixation left distal fibular fracture. CPT 29742 9.6 seconds of fluoroscopic guidance, for a cumulative dose of 0.28 mGy, was provided to Dr. Metcalf by the radiology department. C-arm images of the LEFT ankle were saved for the patient's permanent record. [facility]
--- NOTE | 2022-06-05 | XR_ITS ---
WS: [id number] INTRAOPERATIVE TECHNIQUE: 4 Spot fluoroscopic images for intraoperative purposes. FLUOROSCOPY TIME: 9.6 seconds CLINICAL INFORMATION: BURT PICS COMPARISON: None. FINDINGS: Intraoperative Plate and screw fixation distal fibula. Normal ankle mortise. Diffuse soft tissue molly a. XR/XR ankle LT min 3V* [id number] IMPRESSION: Images obtained for intraoperative purposes.
--- NOTE | 2022-06-05 10:21 | P.ANESASSM_ITS ---
Pre-Anesthetic Assessment Height/Weight: Height 1.5 m Weight 80.739 kg Temp Pulse Resp BP Pulse Ox O2 Del Method 97.8 F 94 18 130/91 96 06/05/22 10:08 06/05/22 10:08 06/05/22 10:08 06/05/22 10:08 06/05/22 10:08 06/05/22 10:10 Preop Diagnosis: Left distal fibular fracture Operation Date: 06/05/22 11:40 Proposed Procedures p Open reduction internal fixation left distal fibular fracture 95032,S82.62XA(Left) - Jason Metcalf DPM Familial anesthetic complications: None Was Beta Rafaela taken within 24 hours: N/A Was Clonidine taken within 24 hours: N/A Last intake: Intake Last Liquid Date 06/04/22 Last Liquid Time 19:00 Last Solid Date 06/04/22 Last Solid Time 19:00 Social No alcohol and No tobacco Exam alert, oriented x 3, clear to auscultation bilaterally and regular rate & rhythm Airway Submandibular: within normal limits Cervical ROM: within normal limits Mallampati: Class II Dentition: false Pulmonary None reported CV/HEM Hypertension Chronic Renal Insufficiency Hepatic None reported GI Gastroesophageal Reflux Disease Metabolic None reported Musc/skel Osteoarthritis/DJD Left fibular fracture Neuropsych Neuropathy Tremor Anesthetic Plan ASA status: 3 Anesthesia: Anesthesia Evaluation, General and Regional (specify below) (Popliteal block for post op pain control ) Other: Plan, risk, benefits discussed with patient and her two sisters. Consent signed by patient and one sister. We discussed risk and benefits of general anesthesia including PONV, sore throat (sometimes severe), corneal abrasion, positioning and peripheral nerve injuries, life threatening allergic reaction, post operative ICU admission requiring prolonged intubation, aspiration, stroke, heart attack, , and rare incidences of recall. Patient consents to proceed with general anesthesia. We discussed risk and benefits of nerve block for post op pain control including management of pain and titration of pain medications as signs/symptoms of nerve block wearing off begin to appear and/or prior bed. We discussed risk of failed nerve block, vascular injury or other vital structure injury, abscess/infection, LAST, and nerve injury. Plan general with popliteal block for post op pain control. Medications/Allergies Home Medications Medication Instructions Recorded Confirmed Last Taken Type atorvastatin 20 mg tablet 20 mg PO DAILY #30 tabs 10/30/19 06/04/22 06/04/22 Rx lisinopril 10 1 tab PO DAILY #30 tabs 10/30/19 06/04/22 06/04/22 Rx mg-hydrochlorothiazide 12.5 mg tablet buspirone 15 mg tablet 15 mg PO BID 05/06/20 06/04/22 06/04/22 History meloxicam 15 mg tablet 15 mg PO DAILY 05/06/20 06/04/22 06/04/22 History cetirizine 10 mg tablet 10 mg PO DAILY 05/08/20 06/04/22 06/04/22 History omeprazole 20 mg capsule,delayed 20 mg PO DAILY 05/08/20 06/04/22 06/04/22 Histo ry release duloxetine 20 mg capsule,delayed 20 mg PO DAILY #30 caps 12/17/20 06/04/22 06/04/22 Rx release Cam Boot to the left #1 ea 06/01/22 06/01/22 Unknown Rx primidone 50 mg tablet 50 mg PO 1XD 06/04/22 06/04/22 06/04/22 History hydrocodone 7.5 mg-acetaminophen 1 tab PO Q8H PRN pain 7 days #21 06/05/22 Unknown Rx 325 mg tablet tabs Allergies Allergy/AdvReac Type Severity Reaction Status Date / Time Penicillins Allergy Unknown Verified 06/04/22 11:29 PFSH Anesthesia Medical History Anxiety Diarrhea Hypertension Kidney disease Surgical History History of bilateral tubal ligation History of hemorrhoidectomy History of laparoscopic cholecystectomy Family History Denies family history of Anesthesia complication Bleeding disorder Social History Smoking and tobacco status: never smoked Second hand smoke exposure: No Alcohol intake: never Adopted: No Caregiver/support person: Yes Lives independently: No Household members: family Housing: House Marital status: Single Current occupational status: disabled Pets and animals: No History of recent travel: No Sexually active: No Current gender identity: Female Penelope/Christian: Scientologist Special penelope needs: No Data Anesthesia : 06/05/22 10:50 06/05/22 12:13 Cardiac Studies: No Data to Display
[2022-06-05] MEDS: sodium chloride 0.9% 1,000 ML 30 ML IV (10:45)
--- NOTE | 2022-06-05 10:57 | ECG_ITS ---
[facility] Test Date: 2022-06-05 Pat Name: Yarelis Beal Department: Room: Gender: Female Professional Builder: : 1950 Requested By: Yg Meeks Order Number: [id number] Jose J MD: Dia Tony M.D. Measurements Intervals [place] Rate: 91 P: 28 [place]: 170 QRS: 2 QRSD: 81 T: 2 QT: 323 QTc: 398 Interpretive Statements SINUS RHYTHM LOW QRS VOLTAGE IN PRECORDIAL LEADS [QRS DEFLECTION < 1.0 mV IN CHEST LEADS] Compared to ECG 10/26/2021 00:02:41 Low QRS voltage now present Myocardial infarct finding now present Sinus tachycardia no longer present Electronically Signed On 06-06-2022 8:43:24 CDT by Dia Tony M.D. [id number]
[2022-06-05] MEDS: gabapentin 300 mg Capsule PO (11:10)
[2022-06-05] MEDS: CELEcoxib 200 mg Capsule 400 MG PO (11:10)
[2022-06-05] MEDS: fentaNYL 50 mcg/mL INJ 2mL IVP (11:15)
[2022-06-05 11:20] LABS: Basophils % 0.5 %; Eosinophils # 0.3 10^3/uL (0.0-0.8); Eosinophils % 3.4 %; Hematocrit 41.9 % (37.0-47.0); Hemoglobin 13.1 g/dL (11.5-15.3); Lymphocytes # 1.9 10^3/uL (0.8-4.8); Mean Corpuscular HGB Conc 31.3 g/dL (30.0-36.0); Mean Corpuscular Hemoglobin 28.5 pg (28.0-34.0); Mean Corpuscular Volume 91.1 fl (81-99); Mean Platelet Volume 9.7 fL (7.4-10.4); Monocytes # 0.6 10^3/uL (0.2-0.9); Monocytes % 7.6 %; Neutrophils # 5.32 10^3/uL (1.8-7.7); Neutrophils % 65.3 %; Nucleated Red Blood Cells % 0 %; Platelet Count 238 10^3/cmm (130-400); Red Cell Distribution Width 13.5 % (12.1-15.1); White Blood Count 8.2 10^3/uL (4.0-10.0)
--- NOTE | 2022-06-05 11:54 | W.PM.OPSUD ---
Surgery/Procedure H&P Update DATE OF PROCEDURE: June 05, 2022 DATE H&P PERFORMED: 06/01/22 CHANGES TO PREVIOUS DOCUMENTATION: none PREOP DIAGNOSIS: Left distal fibular fracture PLANNED PROCEDURE: Operation Date: 06/05/22 11:40 Proposed Procedures p Open reduction internal fixation left distal fibular fracture 72273,S82.62XA(Left) - Jason Metcalf DPM
[2022-06-05] MEDS: clindamycin 600 MG/50 ML PREMIX 100 MG IV (12:17)
--- NOTE | 2022-06-05 12:33 | PM.OP ---
Operative Report Date of procedure: June 05, 2022 Pre-op diagnosis: Preop Diagnosis Left distal fibular fracture Post-op diagnosis: same Post-op findings: None Procedure done: Open reduction internal fixation left distal fibular fracture. CPT 21736 Implants: [place] 28 anatomic fibular plate and 3.5 mm locking screws Specimens removed/disposition: None Pathology: None Surgeon: Jason Metcalf D.P.M. Principal Consulting Engineer: See intraoperative documentation Estimated blood loss: Less than 5 See intraoperative documentation IV fluids: None Urine output: None Complications: None Findings: None Brief History: Left ankle fracture 05/31/2022 date of injury tripped over her slipper when taking out the trash at home. X-ray per my interpretation left ankle shows a displaced Skinny Iln B fracture left distal fibula.? Patient has a closed not dislocated left ankle fracture.? Discussed both surgical and conservative management of her injury.? Patient adamantly requesting surgery, states that previous injuries managed conservatively took additional time to heal and ended up needing surgery anyway she would like to get this fixed as soon as possible.? I reviewed at length with the patient, the risks, potential complications, benefits, alternatives, expectations, and typical outcomes associated with the surgery. The risks and potential complications were explained in detail, including but not limited to infection, wound dehiscence or soft tissue complications, bleeding and hematoma, chronic edema, neuritis or nerve damage producing numbness or chronic pain, CRPS, failure to relieve pain or worsening pain, thick / painful / unsightly scar, limited motion / stiffness, malposition, delayed union, malunion, or nonunion, fracture, reaction to implants, anesthetic complications, venous thromboembolism, and deformity recurrence.? I discussed the notion of no regrets with the patient as it pertains to complications and outcomes. The patient seemed to understand the nature of the proposed care and required convalescence. They asked appropriate questions, answered to their satisfaction. They are aware no guarantees can be made as to a satisfactory outcome and they understand there may be other possible unforeseen complications or outcomes not listed here that will be treated accordingly if they arise. There were no written or implied guarantees given to the patient. They gave informed consent to proceed. Procedure: Under mild sedation the patient was brought to the operating room and was placed on the operating table in supine position. A timeout is performed. Well-padded pneumatic tourniquet applied high calf left lower extremity. Anesthesia was then administered by the anesthesia service. Left lower extremity was then scrubbed, prepped and draped utilizing normal aseptic technique. Left foot and ankle were exanguinated with an Esmarch bandage and the tourniquet inflated to 250 mmHg. Attention was directed to the left lateral ankle where the lateral malleolus was palpated. A linear longitudinal incision was made directly over the lateral aspect of the left distal fibula with a #15 blade. Dissection was carried down sharply through subcutaneous tissue down to the layer of periosteum utilizing accommodation of sharp and blunt technique. Care was taken to retract and protect neurovascular and tendinous structures. All bleeders were ligated and cauterized as necessary. A periosteal incision was made in the fracture consistent with Skinny Lin B was distracted, curettaged and flushed followed by reduction and rigid internal fixation with anatomic fibular plate provided by [employer]ber[employer] Askew with locking screws. This was fixated utilizing standard AO technique with excellent bony apposition and compression noted. Fibula was the rotated and pulled out the length and fixated in anatomic position with intraoperative fluoroscopy confirming that the screws did not violate ankle mortise. Ankle mortise was congruent. Cotton hook test negative for syndesmotic disruption. The incision was then irrigated with copious marialuisa of sterile saline solution and closed in a layered fashion with periosteum reapproximated utilizing 2-0 Vicryl, subcutaneous tissue with 3-0 Vicryl and skin with skin erika. The incision was then dressed with Adaptic, sterile 4 x 4, Kerlix and Thierry followed by application of cam boot with ankle in neutral position and tourniquet was then deflated with a prompt hyperemic response noted to the distal digits of the left foot. Patient tolerated the procedure and anesthesia well and was transferred to the PACU with vital signs stable and vascular status intact. Following a period of postop monitoring she will be discharged home as discharged home instructions and scheduled follow-up.
[2022-06-05 12:44] LABS: Anion Gap 17.2 (5-19); Blood Urea Nitrogen 19 mg/dL (8-23); Calcium 9.4 mg/dL (8.5-10.5); Carbon Dioxide 24 mmol/L (22-29); Chloride 103 mmol/L (98-107); Glucose 91 mg/dL (65-115); Osmolality Calculated 292 mOsm/kg (285-295); Potassium 4.2 mmol/L (3.5-5.1); Sodium 140 mmol/L (136-145)
--- NOTE | 2022-06-05 13:16 | ANES.PROC ---
Anesthesia Procedures Procedure/Date: 06/05/22 Nerve Block ^: Nerve Block 1: Main Anesthesia: general anesthesia Time Out Performed: Yes Consent: requested by attending/covering physician, from patient, risks and benefits reviewed and patient agrees to proceed Nerve block location: popliteal Anesthesia monitors applied: pulse oximetry, EKG, BP cuff and oxygen Nerve block position: semi sitting Anesthetic Used: lidocaine 1% (5 ml) and ropivicaine 0.5% (20 ml) Ultrasound used to: recognize landmarks and other (visualzie and ID popliteal nerve) Nerve Stimulator Used?: Yes (mA lost at 0.4 mA) Interscalene/Femoral BLK: 4 stimuplex 21 g needle used for position and inplane approach, visualize local anesthetic spread and no vascular puncture identified Injection: neg aspiration of heme Patient Tolerated Procedure: well Complications: none Additional Comments: After time out sterile prep, using sterile technique, and using real time US guidance for target selection needle was inserted with real time visualization of needle entry and real time visualization of needle advancement toward intended target. Negative aspiration. LA injected incrementally with negative aspiration every 5 cc and real time US visualization of LA spread throughout procedure. Tolerated well. Image(s) saved.
--- NOTE | 2022-06-05 13:55 | ANE.PACU2 ---
Inpatient post-anesthesia follow up: Airway intact: Yes Vital signs: Temperature 98.2 F Pulse Rate 99 Respiratory Rate 18 Blood Pressure 117/79 Pulse Oximetry 99 Oxygen Delivery Me thod Room Air Oxygen Flow Rate 6 Fraction of Inspir ed Oxygen Hydration adequate: Yes Nausea and vomiting: No Pain level: 1 Mental status: Baseline
== END 2022-06-05 14:25 | disposition home or self-care (01) ==
PROVIDERS: Anesthesiology; PCP Nurse Practitioner Family; Visit Provider Podiatrist Foot & Ankle Surgery
PROC: (CPT 27792; principal; 2022-06-05 11:30)
DX: S82.402A Unspecified fracture of shaft of left fibula, initial encounter for closed fracture (principal); X58.XXXA Exposure to other specified factors, initial encounter; I10 Essential (primary) hypertension; K21.9 Gastro-esophageal reflux disease without esophagitis; F41.9 Anxiety disorder, unspecified
CPT/HCPCS: 27792; 36415; 73610; 76000; 80048; 85025; 93005; C1713; J1100; J1885; J2405; J2704; J2795; J3010; J3490; J7030

== ENCOUNTER → 2022-06-25 13:15 | Outpatient (BNVA) | payer MEDICARE, MEDICAID, SELFPAY | PROVIDERS: PCP Nurse Practitioner Family; Visit Provider Podiatrist Foot & Ankle Surgery | DX: Z98.890 Other specified postprocedural states (principal); M25.572 Pain in left ankle and joints of left foot; S82.832D Other fracture of upper and lower end of left fibula, subsequent encounter for closed fracture with routine healing; X58.XXXD Exposure to other specified factors, subsequent encounter | CPT/HCPCS: 73610; 99024 ==

== ENCOUNTER → 2022-07-20 13:15 | Outpatient (BNVA) | payer MEDICARE, MEDICAID, SELFPAY | PROVIDERS: PCP Nurse Practitioner Family; Visit Provider Podiatrist Foot & Ankle Surgery | DX: S82.402A Unspecified fracture of shaft of left fibula, initial encounter for closed fracture (principal); X58.XXXA Exposure to other specified factors, initial encounter | CPT/HCPCS: 73610; 99024 ==

== ENCOUNTER 2022-07-20 14:43 | Outpatient (CLI) | payer MEDICARE, MEDICAID, SELFPAY | END 2022-07-20 14:44 | disposition home or self-care (01) | LOC: SPT 14:43 | PROVIDERS: PCP Nurse Practitioner Family; Visit Provider Podiatrist Foot & Ankle Surgery | DX: Z46.89 Encounter for fitting and adjustment of other specified devices (principal); S82.402D Unspecified fracture of shaft of left fibula, subsequent encounter for closed fracture with routine healing; X58.XXXD Exposure to other specified factors, subsequent encounter | CPT/HCPCS: 97760; 99024; L1902 ==

== ENCOUNTER → 2022-08-27 14:14 | Outpatient (BNVA) | payer MEDICARE, MEDICAID, SELFPAY | PROVIDERS: PCP Nurse Practitioner Family; Visit Provider Podiatrist Foot & Ankle Surgery | DX: Z98.890 Other specified postprocedural states (principal); X58.XXXA Exposure to other specified factors, initial encounter; S82.402A Unspecified fracture of shaft of left fibula, initial encounter for closed fracture | CPT/HCPCS: 73610; 99024 ==

== ENCOUNTER → 2022-10-26 13:04 | Outpatient (BNVA) | payer MEDICARE, MEDICAID, SELFPAY | PROVIDERS: PCP Nurse Practitioner Family; Visit Provider Podiatrist Foot & Ankle Surgery | DX: T84.84XA Pain due to internal orthopedic prosthetic devices, implants and grafts, initial encounter (principal); Y79.2 Prosthetic and other implants, materials and accessory orthopedic devices associated with adverse incidents | CPT/HCPCS: 99214 ==

== ENCOUNTER 2022-11-13 10:00 | Day surgery (SDC) | payer MEDICARE, MEDICAID, SELFPAY ==
[2022-11-12 13:42] VITALS: BMI 34.4
[2022-11-13] VITALS (8 sets, daily range): BP systolic 102–168; BP diastolic 71–109; PULSE 73–77; RESP 12–18; TEMP 36.4–37.1; O2SAT 93–98
--- NOTE | 2022-11-13 10:27 | P.ANESASSM_ITS ---
Pre-Anesthetic Assessment Height/Weight: Height 1.47 m Weight 74.843 kg Temp Pulse Resp BP Pulse Ox O2 Del Method 97.5 F L 77 18 168/109 98 11/13/22 10:13 11/13/22 10:13 11/13/22 10:13 11/13/22 10:13 11/13/22 10:13 11/13/22 10:15 Preop Diagnosis: Painful hardware left ankle Operation Date: 11/13/22 11:20 Proposed Procedures p Hardware removal left ankle, 08689,T84.84 XA(Left) - Jason Metcalf DPM Familial anesthetic complications: None Was Beta Rafaela taken within 24 hours: N/A Was Clonidine taken within 24 hours: N/A Last intake: Intake Last Liquid Date 11/12/22 Last Liquid Time 14:00 Last Solid Date 11/12/22 Last Solid Time 14:00 Social No alcohol and No tobacco Exam alert, oriented x 3, clear to auscultation bilaterally and regular rate & rhythm Airway Mallampati: Class II Dentition: false Pulmonary None reported CV/HEM Hypertension Chronic Renal Insufficiency Neuropsych Neuropathy Anesthetic Plan ASA status: 3 Anesthesia: MAC Risk of > 500 ml blood loss (7ml/kg in children): No Medications/Allergies Home Medications Medication Instructions Recorded Confirmed Last Taken Type atorvastatin 20 mg tablet 20 mg PO DAILY #30 tabs 10/30/19 11/12/22 1 Day Ago Rx ~11/11/22 lisinopril 10 1 tab PO DAILY #30 tabs 10/30/19 11/12/22 1 Day Ago Rx mg-hydrochlorothiazide 12.5 mg ~11/11/22 tablet buspirone 15 mg tablet 15 mg PO BID 05/06/20 11/12/22 1 Day Ago History ~11/11/22 meloxicam 15 mg tablet 15 mg PO DAILY 05/06/20 11/12/22 1 Day Ago History ~11/11/22 cetirizine 10 mg tablet 10 mg PO DAILY 05/08/20 11/12/22 1 Day Ago History ~11/11/22 omeprazole 20 mg capsule,delayed 20 mg PO DAILY 05/08/20 11/12/22 1 Day Ago History release ~11/11/22 primidone 50 mg tablet 50 mg PO 1XD 06/04/22 11/12/22 1 Day Ago History ~11/11/22 duloxetine 20 mg capsule,delayed 20 mg PO BID 11/12/22 11/12/22 1 Day Ago History release ~11/11/22 Allergies Allergy/AdvReac Type Severity Reaction Status Date / Time Penicillins Allergy Unknown Verified 11/12/22 13:39 [facility] Anesthesia Medical History (Updated 10/30/22 @ 19:53 by Jason Metcalf DPM) Anxiety Diarrhea Hypertension Kidney disease Surgical History History of bilateral tubal ligation History of hemorrhoidectomy History of laparoscopic cholecystectomy Family History Denies family history of Anesthesia complication Bleeding disorder Social History Smoking and tobacco status: never smoked Second hand smoke exposure: No Alcohol intake: never Adopted: No Caregiver/support person: Yes Lives independently: No Household members: family Housing: House Marital status: Single Current occupational status: disabled Pets and animals: No Sexually active: No Current gender identity: Female Pneelope/Mormonism: Yarsanism Special penelope needs: No Data Anesthesia Cardiac Studies: No Data to Display
--- NOTE | 2022-11-13 10:31 | W.PM.OPSUD ---
Surgery/Procedure H&P Update DATE OF PROCEDURE: November 13, 2022 DATE H&P PERFORMED: 10/26/22 CHANGES TO PREVIOUS DOCUMENTATION: None PREOP DIAGNOSIS: Painful hardware left ankle PLANNED PROCEDURE: Operation Date: 11/13/22 11:20 Proposed Procedures p Hardware removal left ankle, 86273,T84.84 XA(Left) - Jason Metcalf DPM
[2022-11-13] MEDS: sodium chloride 0.9% 1,000 ML 30 ML IV (10:34)
[2022-11-13] MEDS: clindamycin 600 MG/50 ML PREMIX 100 MG IV ×2 (10:35→10:44)
[2022-11-13] MEDS: gabapentin 300 mg Capsule PO (10:36)
[2022-11-13] MEDS: CELEcoxib 200 mg Capsule 400 MG PO (10:36)
--- NOTE | 2022-11-13 11:03 | SUR.OPER ---
1100 PT REQUESTED REMOVED HARDWARE BE RETURNED TO HER. 8 SCREWS AND 1 PLATE WAS WASHED AND RETURNED TO PT PER DR REQUEST.
--- NOTE | 2022-11-13 18:04 | ANE.PACU2 ---
Inpatient post-anesthesia follow up: Airway intact: Yes Vital signs: Temperature 98.3 F Pulse Rate 75 Respiratory Rate 18 Blood Pressure 134/86 Pulse Oximetry 98 Oxygen Delivery Me thod Room Air Oxygen Flow Rate Fraction of Inspir ed Oxygen Hydration adequate: Yes Nausea and vomiting: No Pain level: 1 Mental status: Baseline
--- NOTE | 2022-11-13 20:45 | P.OP_ITS ---
Operative Report Date of procedure: November 13, 2022 Pre-op diagnosis: Preop Diagnosis Painful hardware left ankle Post-op diagnosis: Painful hardware left ankle Procedure done: Hardware removal left ankle. CPT code 95693 Implants: 2-0 Vicryl, 3-0 Vicryl, skin erika Specimens removed/disposition: 8 screws 1 plate left lateral ankle removed without fragmentation or failure. Surgeon: Jason Metcalf D.P.M. Assistant Infant Teacher: Radha Estimated blood loss: 5 9 IV fluids: 0 Urine output: None Complications: None Brief History: 71-year-old female complains of left lateral ankle pain associated with her fibular plate.? Requesting hardware removal.? She states that pain occurs daily both with and without pressure to her ankle.? Pain is increased when she is wearing shoe gear or applies pressure to the outside of her ankle.? This affects her overall quality of life on a daily basis and is requesting removal.? I reviewed at length with the patient, the risks, potential complications, benefits, alternatives, expectations, and typical outcomes associated with the surgery. The risks and potential complications were explained in detail, including but not limited to infection, wound dehiscence or soft tissue complications, bleeding and hematoma, chronic edema, neuritis or nerve damage producing numbness or chronic pain, CRPS, failure to relieve pain or worsening pain, thick / painful / unsightly scar, limited motion / stiffness, malposition, delayed union, malunion, or nonunion, fracture, reaction to implants, anesthetic complications, venous thromboembolism, and deformity recurrence.? I discussed the notion of no regrets with the patient as it pertains to complications and outcomes. The patient seemed to understand the nature of the proposed care and required convalescence. They asked appropriate questions, answered to their satisfaction. They are aware no guarantees can be made as to a satisfactory outcome and they understand there may be other possible unforeseen complications or outcomes not listed here that will be treated accordingly if they arise. There were no written or implied guarantees given to the patient. They gave informed consent to proceed. Procedure: Under mild sedation the patient was brought to the operating room and remained on the gurney in supine position. A timeout was performed. Anesthesia was then administered by the anesthesia service. Local anesthesia was injected by myself consisting of 20 cc of 0.5 to Marcaine plain and 20 cc of Exparel in a grid like fashion subcutaneously proximal to the operative site. Well-padded pneumatic tourniquet was applied to the left high calf. Left lower extremity was then scrubbed, prepped and draped utilizing normal aseptic technique. Left foot and leg were exanguinated with an Esmarch bandage and a tourniquet inflated to 250 mmHg. Attention was directed to the previous cicatrix of the left lateral ankle where a new incision was performed directly over the previous utilizing a #15 blade through skin with dissection carried down through subcutaneous tissue to the layer of hardware utilizing sharp and blunt technique. Care was taken to retract and preserve neurovascular and tendinous structures. All bleeders were ligated and cauterized as necessary. Total of 8 screws and 1 plate were removed without fragmentation or failure. All hardware was removed and rough edges smoothed with a hand rasp. The incision was irrigated with copious months of sterile skin solution. Incision closure was performed in a layered fashion with periosteum and deep fascia reapproximated with 2-0 Vicryl, subcutaneous tissue with 3-0 Vicryl and skin with erika. Incision was dressed with Adaptic, sterile 4 x 4's, Kerlix and Thierry wrap as well as a postop shoe. Tourniquet was deflated and a prompt hyperemic response was noted to the distal digits of the left foot. Patient tolerated the procedure and anesthesia well and was transferred to the PACU with vital signs stable and vascular status intact. Following a period of postoperative monitoring she will be discharged home may be weightbearing as tolerated below threshold of pain. Is to elevate her left foot while resting. Was provided a prescription for pain medication, at home care instructions as well as schedule follow-up and my cell phone number to contact with any postoperative questions or concerns.
== END 2022-11-13 12:10 | disposition home or self-care (01) ==
PROVIDERS: PCP Nurse Practitioner Family; Visit Provider Podiatrist Foot & Ankle Surgery
PROC: (CPT 20680; principal; 2022-11-13 11:10)
DX: T84.84XA Pain due to internal orthopedic prosthetic devices, implants and grafts, initial encounter (principal); F41.9 Anxiety disorder, unspecified; I12.9 Hypertensive chronic kidney disease with stage 1 through stage 4 chronic kidney disease, or unspecified chronic kidney disease; N18.9 Chronic kidney disease, unspecified; Y83.8 Other surgical procedures as the cause of abnormal reaction of the patient, or of later complication, without mention of misadventure at the time of the procedure
CPT/HCPCS: 20680; C9290; J2704; J3010; J3490; J7030

== ENCOUNTER → 2022-12-24 14:14 | Outpatient (BNVA) | payer MEDICARE, MEDICAID, SELFPAY | PROVIDERS: PCP Nurse Practitioner Family; Visit Provider Podiatrist Foot & Ankle Surgery | DX: Z98.890 Other specified postprocedural states (principal) | CPT/HCPCS: 99024 ==

== ENCOUNTER → 2023-01-06 15:26 | Outpatient (BNVA) | payer MEDICARE, MEDICAID, SELFPAY | PROVIDERS: PCP Nurse Practitioner Family; Visit Provider Podiatrist Foot & Ankle Surgery | DX: Z98.890 Other specified postprocedural states (principal); M25.572 Pain in left ankle and joints of left foot | CPT/HCPCS: 73610; 99024 ==

== ENCOUNTER → 2023-02-17 15:09 | Outpatient (BNVA) | payer MEDICARE, MEDICAID, SELFPAY | PROVIDERS: PCP Nurse Practitioner Family; Visit Provider Podiatrist Foot & Ankle Surgery | DX: M25.572 Pain in left ankle and joints of left foot (principal); Z87.81 Personal history of (healed) traumatic fracture | CPT/HCPCS: 99213 ==

== ENCOUNTER 2023-03-12 10:40 | Outpatient (CLI) | payer MEDICARE, MEDICAID, SELFPAY ==
--- NOTE | 2023-03-12 10:53 | MM_ITS ---
WS: [id number] BILATERAL SCREENING DIGITAL MAMMOGRAM WITH CAD HISTORY: SCREENING COMPARISON: 03/04/2022, 02/26/2020 Bilateral CC and MLO views submitted. Computer aided detection analyzed. Breast composition: The breasts are heterogeneously dense, which may obscure small masses. No suspici ous masses, microcalcifications or architectural distortion. Scattered calcifications. No new or enla rging mass. No asymmetry of any significance or change. MM/[place] [id number] IMPRESSION: BI-RADS: 2-Benign FOLLOW UP: 1 Year Follow-up
== END 2023-03-12 10:41 | disposition home or self-care (01) ==
PROVIDERS: PCP Nurse Practitioner Family; Visit Provider Nurse Practitioner Family
DX: Z12.31 Encounter for screening mammogram for malignant neoplasm of breast (principal)
CPT/HCPCS: 77067

== ENCOUNTER 2024-03-17 07:53 | Outpatient (CLI) | payer MEDICARE, MEDICAID, SELFPAY ==
--- NOTE | 2024-03-17 07:59 | MM_ITS ---
WS: [id number] VIEWS: MLO and CC views both breasts. 3D digital tomosynthesis is also included in this exam. Comparison made with prior exam of 12/28/2014, 12/30/2015, 01/04/2017, 01/05/2018, 02/21/2019, 02/26/2020, , 03/04/2022, 03/12/2023.. Findings: There was no sign of mass, architectural distortion or suspicious calcification in either breast. Sta ble appearing nodules in both breasts. The breasts are heterogeneously dense which might obscure smal l masses. MM/[place] [id number] Impression: BI-RADS: 2-Benign finding. FOLLOW-UP: 1 Year Follow-up This mammogram was also analyzed by the Computer Aided Detection System R2 Imag e Information Technology Specialist.
== END 2024-03-17 07:54 | disposition home or self-care (01) ==
LOC: RAD 07:53
PROVIDERS: PCP Nurse Practitioner Family; Visit Provider Nurse Practitioner Family
DX: Z12.31 Encounter for screening mammogram for malignant neoplasm of breast (principal)
CPT/HCPCS: 77063; 77067

== ENCOUNTER 2024-07-14 11:35 | Outpatient (CLI) | payer MEDICARE, MEDICAID, SELFPAY ==
--- NOTE | 2024-07-14 11:48 | XR_ITS ---
WS: [id number] Exam: XR foot RT 2V [id number] Date/Time of Exam: 07/14/2024 11:56 AM Reason For Exam: RIGHT FOOT PAIN No acute fracture. Degenerative changes in the IP joints and first MP joint. Posterior heel spur. Nor mal soft tissues. XR/XR foot RT 2V [id number] IMPRESSION: 1. Mild degenerative changes. No fracture or other significant finding.
== END 2024-07-14 11:36 | disposition home or self-care (01) ==
PROVIDERS: PCP Nurse Practitioner Family; Visit Provider Nurse Practitioner Family
DX: M77.31 Calcaneal spur, right foot (principal)
CPT/HCPCS: 73620